=== PATIENT | female | born 1930 | race Caucasian/White ===

== ENCOUNTER 2016-10-14 11:55 | Emergency (ER) | payer MEDICARE, BC ==
[2016-10-14] MEDS ORDERED: Sodium Chloride 0.9% 1,000 ML IV ONE ×2 (12:12→13:31)
--- NOTE | 2016-10-14 12:20 | EDM.PDOC ---
ED HPI GENERAL MEDICAL PROBLEM - General Stated Complaint: episode of unresponsive Time Seen by Provider: 10/14/16 12:00 Source of Information: Reports: Patient, EMS, Custodial Records History Limitations: Reports: Altered Mental Status - History of Present Illness INITIAL COMMENTS - FREE TEXT/NARRATIVE: Patient was getting [place] and was found unresponsive in her wheel chair. Poorly responsive, lethargic on the ambulance. On arrival is still decreased but answers questions, BP low. No pain except in the areas of her shoulder and hip where she normally has pain. No CP, SOB, No Abdominal pain. No reports of fever Onset: Today, Sudden Duration: Hour(s): (1) Location: Reports: Generalized (no pain) Severity: Moderate Improves with: Reports: None Worsens with: Reports: None Context: Reports: Other (as above) Associated Symptoms: Reports: No Other Symptoms - Related Data Allergies Allergy/AdvReac Type Severity Reaction Status Date / Time cortisone [Cortisone] Allergy Rash Verified 10/14/16 13:11 Home Meds: Home Meds Albuterol [Proair HFA] 2 puff INH Q4HR PRN 04/27/13 [History] Calcium Carbonate [Tums] 1,000 mg PO DAILY 04/27/13 [History] Bisacodyl [Dulcolax] 5 mg PO BEDTIME PRN 10/24/14 [History] Sennosides/Docusate Sodium [Senna-Docusate Sodium] 2 tab PO DAILY PRN 10/24/14 [ History] *Rup Analgesic Rub 1 applic TOP TID PRN 12/20/14 [History] Docusate Sodium [Colace] 100 mg PO BEDTIME 12/20/14 [History] guaiFENesin [Robitussin] 100 mg PO Q4H PRN #0 cup 12/21/14 [Rx] Acetaminophen [Tylenol Extra Strength] 1,000 mg PO 0800,1600,0000 #90 tablet [Rx] Polyethylene Glycol 3350 [MiraLAX] 17 gm PO BEDTIME #10 packet 02/23/16 [Rx] Arformoterol [Brovana] 2 ml INH BID 10/14/16 [History] Benzocaine [Anesthetic Oral Gel] 1 applic PO DAILY PRN 10/14/16 [History] Calcium Carbonate [Calcium] 1,250 mg PO DAILY 10/14/16 [History] Cholecalciferol (Vitamin D3) [Vitamin D3] 1 cap PO DAILY 10/14/16 [History] Dextromethorphan/guaiFENesin [Mucinex DM ER 600-30 MG] 1 tab PO BID PRN [History] Diclofenac Sodium [Diclofenac Sodium ER] 1 tab PO DAILY 10/14/16 [History] Hydrocodone/Acetaminophen [Hydrocodon-Acetaminophen 5-325] 1 tab PO Q6H PRN [History] Oxybutynin Chloride 1 tab PO DAILY 10/14/16 [History] Sodium Chloride 1 tab PO TID 10/14/16 [History] Past Medical History Other HEENT History: glasses Cardiovascular History: Reports: Blood Clots/VTE/DVT Psychiatric History: Reports: Depression - Past Surgical History Other Musculoskeletal Surgeries/Procedures:: back surgeries- herniated disks Social & Family History - Family History HEENT: Reports: None Cardiac: Reports: None Respiratory: Reports: None GI: Reports: None : Reports: None OBGYN: Reports: None Musculoskeletal: Reports: None Neurological: Reports: None Psychiatric: Reports: None Endocrine/Metabolic: Reports: None Hematologic: Reports: None Immunologic: Reports: None Dermatologic: Reports: None Oncologic: Reports: Other (See Below) - Tobacco Use Smoking Status *Q: Current Every Day Smoker Years of Tobacco use: 60 Packs/Tins Daily: 0.3 Used Tobacco, but Quit: No Month Tobacco Last Used: t Second Hand Smoke Exposure: No - Caffeine Use Caffeine Use: Reports: None - Alcohol Use Days Per Week of Alcohol Use: 0 Number of Drinks Per Day: 0 Total Drinks Per Week: 0 - Recreational Drug Use Recreational Drug Use: No ED ROS GENERAL - Review of Systems Review Of Systems: See Below Constitutional: Reports: Weakness. Denies: Fever, Chills HEENT: Reports: No Symptoms Respiratory: Reports: No Symptoms Cardiovascular: Reports: No Symptoms Endocrine: Reports: No Symptoms GI/Abdominal: Reports: No Symptoms : Reports: No Symptoms Musculoskeletal: Reports: No Symptoms Skin: Reports: No Symptoms Neurological: Reports: Syncope, Weakness Psychiatric: Reports: No Symptoms Hematologic/Lymphatic: Reports: No Symptoms Immunologic: Reports: No Symptoms - Physical Exam Exam: See Below Exam Limited By: Altered Mental Status General Appearance: Lethargic Eye Exam: Bilateral Eye: EOMI, PERRL, Other (pale conjunctiva) Ears: Normal External Exam Nose: Normal Inspection, Normal Mucosa, No Blood Throat/Mouth: Normal Inspection, Normal Voice, No Airway Compromise Head Exam: Atraumatic, Normocephalic Neck: Normal Inspection, Supple, Full Range of Motion Respiratory/Chest: No Respiratory Distress, Lungs Clear, Normal Breath Sounds, No Accessory Muscle Use Cardiovascular: Normal Peripheral Pulses, Regular Rate, Rhythm, No Edema GI/Abdominal: Soft, Non-Tender, No Organomegaly, No Distention Rectal (Female) Exam: Heme - Stool Back Exam: Normal Inspection Extremities: Normal Inspection, No Pedal Edema, Slow Capillary Refill Psychiatric: Other (lethargic) Skin Exam: Dry, Intact, No Rash, Cool Course - Vital Signs Last Recorded V/S: Last Vital Signs Temp 36.8 C 10/14/16 11:55 Pulse 73 10/14/16 11:55 Resp 17 10/14/16 11:55 BP 80/40 L 10/14/16 11:55 Pulse Ox 90 L 10/14/16 11:55 - Orders/Labs/Meds Orders: Active Orders 24 hr Category Date Time Status EKG Documentation Completion [RC] ASDIRECTED Care 10/14/16 13:11 Active Insert Aragon Catheter [Insert Urinary Catheter] [OM.PC] Care 10/14/16 12:15 Ordered Q24H Urinary Catheter Assessment [RC] ASDIRECTED Care 10/14/16 12:14 Active Chest 1V Frontal [CR] Stat Exams 10/14/16 12:40 Taken Sodium Chloride 0.9% @ 999 MLS/HR (1000ml) Med 10/14/16 13:31 Ordered Sodium Chloride 0.9% [Normal Saline] 1,000 ml IV .BOLUS EKG 12 Lead [EK] Routine Ther 10/14/16 13:11 Ordered Medication Orders Sodium Chloride (Normal Saline) 1,000 mls @ 999 mls/hr IV .BOLUS ONE Stop: 10/14/16 14:31 Labs: Laboratory Tests 10/14/16 10/14/16 10/14/16 Range/Units 12:12 12:12 12:12 WBC 8.7 (5.0-10.0) 10^3/uL RBC 3.55 L (3.80-5.50) 10^6/uL Hgb 10.8 L (12.0-16.0) g/dL Hct 32.5 L (37.0-47.0) % MCV 91.4 (82.0-92.0) fL MCH 30.4 (27.0-31.0) pg MCHC 33.2 (32.0-36.0) g/dL RDW 14.7 H (11.5-14.5) % Plt Count 310 H (150-300) 10^3/uL MPV 6.1 L (7.4-10.4) fL Neut % (Auto) 73.1 H (50.0-70.0) % Lymph % (Auto) 14.5 L (20.0-40.0) % Lyon % (Auto) 5.8 (2.0-8.0) % Eos % (Auto) 5.5 H (1.0-3.0) % Baso % (Auto) 1.1 H (0.0-1.0) % Neut # (Auto) 6.3 (2.5-7.0) 10^3/uL Lymph # (Auto) 1.3 (1.0-4.0) 10^3/uL Lyon # (Auto) 0.5 (0.1-0.8) 10^3/uL Eos # (Auto) 0.5 H (0.1-0.3) 10^3/uL Baso # (Auto) 0.1 (0.0-0.1) 10^3/uL PT 10.1 (8.9-11.4) SEC INR 1.0 (0.9-1.1) Sodium 135 L (136-145) mmol/L Potassium 4.1 (3.3-5.3) mmol/L Chloride 99 (98-115) mmol/L Carbon Dioxide 29.8 (21.0-32.0) mmol/L BUN 11 (6-25) mg/dL Creatinine 0.65 (0.51-1.17) mg/dL Est Cr Clr Drug Dosing TNP Estimated GFR (MDRD) > 60 mL/min Glucose 105 (70-110) mg/dL Calcium 8.2 L (8.7-10.3) mg/dL Total Bilirubin 0.3 (0.2-1.0) mg/dL AST 18 (15-37) U/L ALT 15 (12-78) U/L Alkaline Phosphatase 50 (46-116) IU/L Troponin I < 0.04 (0.00-0.070) ng/mL Total Protein 5.7 L (6.4-8.2) g/dL Albumin 2.93 L (3.00-4.80) g/dL Specimen Type Urine Color (YELLOW) Urine Appearance (CLEAR) Urine pH (5.0-9.0) Ur Specific Arabi (1.005-1.030) Urine Protein (NEGATIVE) mg/dL Urine Glucose (UA) (NEGATIVE) mg/dL Urine Ketones (NEGATIVE) mg/dL Urine Occult Blood (NEGATIVE) Urine Nitrite (NEGATIVE) Urine Bilirubin (NEGATIVE) Urine Urobilinogen (0.2-1.0) E.U./dL Ur Leukocyte Esterase (NEGATIVE) Urine RBC /HPF Urine WBC /HPF Ur Epithelial Cells /LPF Urine Bacteria (NONE TO FEW) /HPF 10/14/16 Range/Units 12:35 WBC (5.0-10.0) 10^3/uL RBC (3.80-5.50) 10^6/uL Hgb (12.0-16.0) g/dL Hct (37.0-47.0) % MCV (82.0-92.0) fL MCH (27.0-31.0) pg MCHC (32.0-36.0) g/dL RDW (11.5-14.5) % Plt Count (150-300) 10^3/uL MPV (7.4-10.4) fL Neut % (Auto) (50.0-70.0) % Lymph % (Auto) (20.0-40.0) % Lyon % (Auto) (2.0-8.0) % Eos % (Auto) (1.0-3.0) % Baso % (Auto) (0.0-1.0) % Neut # (Auto) (2.5-7.0) 10^3/uL Lymph # (Auto) (1.0-4.0) 10^3/uL Lyon # (Auto) (0.1-0.8) 10^3/uL Eos # (Auto) (0.1-0.3) 10^3/uL Baso # (Auto) (0.0-0.1) 10^3/uL PT (8.9-11.4) SEC INR (0.9-1.1) Sodium (136-145) mmol/L Potassium (3.3-5.3) mmol/L Chloride (98-115) mmol/L Carbon Dioxide (21.0-32.0) mmol/L BUN (6-25) mg/dL Creatinine (0.51-1.17) mg/dL Est Cr Clr Drug Dosing Estimated GFR (MDRD) mL/min Glucose (70-110) mg/dL Calcium (8.7-10.3) mg/dL Total Bilirubin (0.2-1.0) mg/dL AST (15-37) U/L ALT (12-78) U/L Alkaline Phosphatase (46-116) IU/L Troponin I (0.00-0.070) ng/mL Total Protein (6.4-8.2) g/dL Albumin (3.00-4.80) g/dL Specimen Type Urinfol Urine Color Yellow (YELLOW) Urine Appearance Cloudy H (CLEAR) Urine pH 5.5 (5.0-9.0) Ur Specific Arabi 1.020 (1.005-1.030) Urine Protein Trace H (NEGATIVE) mg/dL Urine Glucose (UA) Negative (NEGATIVE) mg/dL Urine Ketones Trace H (NEGATIVE) mg/dL Urine Occult Blood Negative (NEGATIVE) Urine Nitrite Positive H (NEGATIVE) Urine Bilirubin Negative (NEGATIVE) Urine Urobilinogen 0.2 (0.2-1.0) E.U./dL Ur Leukocyte Esterase Trace H (NEGATIVE) Urine RBC 0-5 /HPF Urine WBC 30-40 H /HPF Ur Epithelial Cells Few /LPF Urine Bacteria Many H (NONE TO FEW) /HPF Meds: Medications Generic Name Dose Route Start Last Admin Trade Name Freq PRN Reason Stop Dose Admin Sodium Chloride 1,000 mls @ 999 mls/hr 10/14/16 13:31 Normal Saline IV 10/14/16 14:31 .BOLUS ONE Discontinued Medications Generic Name Dose Route Start Last Admin Trade Name Freq PRN Reason Stop Dose Admin Sodium Chloride 1,000 mls @ 999 mls/hr 10/14/16 12:12 10/14/16 12:20 Normal Saline IV 07/13/17 13:12 999 mls/hr .BOLUS ONE Administration - Re-Assessments/Exams Free Text/Narrative Re-Assessment/Exam: 10/14/16 13:33 BP improved with initial bolus, still pale and weak. Departure - Departure Time of Disposition: 13:33 Disposition: Refer to Observation Condition: Fair Clinical Impression: Hypotension Qualifiers: Hypotension type: unspecified hypotension type Qualified Code(s): I95.9 - Hypotension, unspecified Syncope Qualifiers: Syncope type: unspecified Qualified Code(s): R55 - Syncope and collapse - Discharge Information - Problem List Review Problem List Initiated/Reviewed/Updated: Yes - My Orders Last 24 Hours: My Active Orders 10/14/16 12:14 Urinary Catheter Assessment [RC] ASDIRECTED 10/14/16 12:15 Insert Aragon Catheter [Insert Urinary Catheter] [OM.PC] Q24H 10/14/16 12:40 Chest 1V Frontal [CR] Stat 10/14/16 13:11 EKG Documentation Completion [RC] ASDIRECTED EKG 12 Lead [EK] Routine 10/14/16 13:31 Sodium Chloride 0.9% @ 999 MLS/HR (1000ml) Sodium Chloride 0.9% [Normal Saline] 1,000 ml IV .BOLUS - Assessment/Plan Last 24 Hours: My Active Orders 10/14/16 12:14 Urinary Catheter Assessment [RC] ASDIRECTED 10/14/16 12:15 Insert Aragon Catheter [Insert Urinary Catheter] [OM.PC] Q24H 10/14/16 12:40 Chest 1V Frontal [CR] Stat 10/14/16 13:11 EKG Documentation Completion [RC] ASDIRECTED EKG 12 Lead [EK] Routine 10/14/16 13:31 Sodium Chloride 0.9% @ 999 MLS/HR (1000ml) Sodium Chloride 0.9% [Normal Saline] 1,000 ml IV .BOLUS Assessment:: 1. Syncope and hypotension - Patient is dehydrated. Has a UTI which may be contributory. Need to r/o GI bleed, first hemoccult normal Plan: 1. Fluid resuscitation 2. Antibiotics to cover UTI 3. Serial Hemoccult 4. Discussed DDX with Bharathi Lord. He will monitor for other contributory factors
[2016-10-14 12:47] LABS: CHLORIDE,CL 99 mmol/L (98-115); SODIUM,NA 135 mmol/L (136-145)
[2016-10-14] MEDS ORDERED: Albuterol HFA 18 Gm Inhaler INH PRN (13:51)
[2016-10-14] MEDS ORDERED: Acetaminophen/HYDROcodone 325-5 MG Tab PO PRN (13:51)
[2016-10-14] MEDS ORDERED: Sodium Chloride 0.9% 1,000 ML IV SCH (14:00)
[2016-10-14] MEDS ORDERED: Sodium Chloride 1 GM Tab PO SCH (14:00)
[2016-10-14] MEDS ORDERED: Levofloxacin/Dextrose 5%-Water 500 MG in Premix Bag 1 BAG IV SCH (14:00)
[2016-10-14] MEDS ORDERED: Lidocaine 2% 100 MG/5 ML Syringe IVPUSH PRN (14:51)
[2016-10-14] MEDS ORDERED: Atropine 0.1 MG/ML 10 ML Syringe IVPUSH PRN (14:51)
[2016-10-14] MEDS ORDERED: EPINEPHrine 1:10,000 1 MG/10 ML Syringe IVPUSH PRN (14:51)
[2016-10-14] MEDS ORDERED: Nitroglycerin 0.4 MG Tab.SL SL PRN (14:51)
[2016-10-14] MEDS ORDERED: Acetaminophen 500 MG Tab PO SCH (16:00)
[2016-10-14 17:18] VITALS: BP 94/34
[2016-10-14] MEDS ORDERED: Arformoterol 15 MCG/2 ML Neb Soln INH SCH (21:00)
[2016-10-15] MEDS ORDERED: Diclofenac Sodium 50 MG Tab.EC PO SCH (08:00)
[2016-10-15] MEDS ORDERED: Oxybutynin 5 MG Tab PO SCH (09:00)
[2016-10-15] MEDS ORDERED: Calcium Carbonate 500 MG Tab.Chew PO SCH (09:00)
== END 2016-10-14 16:20 ==
LOC: KA.ED 11:55
DX: I95.9 Hypotension, unspecified (principal); F17.210 Nicotine dependence, cigarettes, uncomplicated; Z98.890 Other specified postprocedural states; Z86.718 Personal history of other venous thrombosis and embolism; Z79.899 Other long term (current) drug therapy; Z88.8 Allergy status to other drugs, medicaments and biological substances
CPT/HCPCS: 36415; 36430; 51702; 71010; 80053; 81001; 82272; 84484; 85014; 85018; 85025; 85610; 86850; 86900; 86901; 86920; 86922; 93005; 96361; 96374; 99285; A9270; J1956; J7030; P9016

== ENCOUNTER 2016-12-17 10:11 | Emergency (ER) | payer MEDICARE, BC ==
[2016-12-17 10:23] VITALS: BP 146/62
--- NOTE | 2016-12-17 10:25 | EDM.PDOC ---
ED HPI GENERAL MEDICAL PROBLEM - General Chief Complaint: Upper Extremity Injury/Pain Stated Complaint: FALL/PAIN IN SHOULDER AND BACK Time Seen by Provider: 12/17/16 10:19 Source of Information: Reports: Patient, Other (EMPLOYEES) History Limitations: Reports: No Limitations - History of Present Illness INITIAL COMMENTS - FREE TEXT/NARRATIVE: PT WAS CLIMBING STAIRS TO ENTER RADIOLOGY TRUCK AND ACCIDENTALLY FELL. ASSISTED FALL WITH TECH GRADUALLY LOWERING HER TO GROUND AND NOT FROM STANDING POSITION ALONE. NOW WITH PAIN IN LEFT SHOULDER. DENY LOC, HEAD INJURY, VAZQUEZ, VISION CHANGES , OR ANY OTHER INJURY Onset: Today Onset Date: 12/17/16 Onset Time: 10:00 Duration: Minutes: Location: Reports: Upper Extremity, Left Quality: Reports: Ache Severity: Mild Improves with: Reports: None Worsens with: Reports: Movement Context: Reports: Trauma Associated Symptoms: Reports: No Other Symptoms - Related Data Allergies Allergy/AdvReac Type Severity Reaction Status Date / Time cortisone [Cortisone] Allergy Rash Verified 10/14/16 13:11 Home Meds: Home Meds Albuterol [Proair HFA] 2 puff INH Q4HR PRN 04/27/13 [History] Calcium Carbonate [Tums] 500 mg PO TID 04/27/13 [History] Bisacodyl [Dulcolax] 5 mg PO BEDTIME PRN 10/24/14 [History] Sennosides/Docusate Sodium [Senna-Docusate Sodium] 2 tab PO DAILY 10/24/14 [ History] *Rup Analgesic Rub 1 applic TOP BID 12/20/14 [History] Docusate Sodium [Colace] 100 mg PO BEDTIME 12/20/14 [History] guaiFENesin [Robitussin] 100 mg PO Q4H PRN #0 cup 12/21/14 [Rx] Acetaminophen [Tylenol Extra Strength] 1,000 mg PO 0800,1600,0000 #90 tablet [Rx] Polyethylene Glycol 3350 [MiraLAX] 17 gm PO BEDTIME #10 packet 02/23/16 [Rx] Arformoterol [Brovana] 2 ml INH BID 10/14/16 [History] Benzocaine [Anesthetic Oral Gel] 1 applic PO DAILY PRN 10/14/16 [History] Calcium Carbonate [Calcium] 1,250 mg PO DAILY 10/14/16 [History] Cholecalciferol (Vitamin D3) [Vitamin D3] 1 cap PO DAILY 10/14/16 [History] Dextromethorphan/guaiFENesin [Mucinex DM ER 600-30 MG] 1 tab PO BID PRN [History] Diclofenac Sodium [Diclofenac Sodium ER] 1 tab PO DAILY 10/14/16 [History] Hydrocodone/Acetaminophen [Hydrocodon-Acetaminophen 5-325] 1 tab PO Q6H PRN [History] Oxybutynin Chloride 1 tab PO DAILY 10/14/16 [History] Sodium Chloride 1 tab PO TID 10/14/16 [History] Past Medical History HEENT History: Reports: Impaired Vision Other HEENT History: glasses Cardiovascular History: Reports: Blood Clots/VTE/DVT Respiratory History: Reports: COPD Gastrointestinal History: Reports: Fecal Incontinence Musculoskeletal History: Reports: Back Pain, Chronic, Fracture, Osteoarthritis, Other (See Below) Other Musculoskeletal History: displaced upper left humerus with surgical repair in February 2016 Psychiatric History: Reports: Depression - Past Surgical History Other Musculoskeletal Surgeries/Procedures:: back surgeries- herniated disks Social & Family History - Family History HEENT: Reports: None Cardiac: Reports: None Respiratory: Reports: None GI: Reports: None : Reports: None OBGYN: Reports: None Musculoskeletal: Reports: None Neurological: Reports: None Psychiatric: Reports: None Endocrine/Metabolic: Reports: None Hematologic: Reports: None Immunologic: Reports: None Dermatologic: Reports: None Oncologic: Reports: Other (See Below) - Tobacco Use Smoking Status *Q: Current Every Day Smoker Years of Tobacco use: 60 Packs/Tins Daily: 0.3 Used Tobacco, but Quit: No Month Tobacco Last Used: t Second Hand Smoke Exposure: No - Caffeine Use Caffeine Use: Reports: None - Alcohol Use Days Per Week of Alcohol Use: 0 Number of Drinks Per Day: 0 Total Drinks Per Week: 0 - Recreational Drug Use Recreational Drug Use: No Review of Systems - Review of Systems Review Of Systems: ROS reveals no pertinent complaints other than HPI. Constitutional: Reports: No Symptoms Eyes: Reports: No Symptoms Ears: Reports: No Symptoms Nose: Reports: No Symptoms Mouth/Throat: Reports: No Symptoms Respiratory: Reports: No Symptoms Cardiovascular: Reports: No Symptoms GI/Abdominal: Reports: No Symptoms Genitourinary: Reports: No Symptoms Musculoskeletal: Reports: Arm Pain (LEFT UPPER ARM), Joint Pain (LEFT SHOULDER) Skin: Reports: No Symptoms Neurological: Reports: No Symptoms Psychiatric: Reports: No Symptoms ED EXAM, GENERAL - Physical Exam Exam: See Below Exam Limited By: No Limitations General Appearance: Alert, WD/WN, No Apparent Distress Eye Exam: Bilateral Eye: Normal Inspection Throat/Mouth: Normal Inspection, Normal Oropharynx, No Airway Compromise Head: Atraumatic, Normocephalic Neck: Normal Inspection, Supple, Non-Tender, Full Range of Motion Respiratory/Chest: No Respiratory Distress, Lungs Clear GI/Abdominal: Normal Bowel Sounds, Soft, Non-Tender Extremities: Arm Pain (LEFT PROX HUMERUS / LEFT LATERAL SHOULDER / NO EDEMA, ECCHYMOSIS, OR DEFORMITY NOTED) Neurological: Alert, Oriented, Normal Cognition Psychiatric: Normal Affect, Normal Mood Skin Exam: Warm, Dry, Intact, Normal Color, No Rash Course - Orders/Labs/Meds Orders: Active Orders 24 hr Category Date Time Status Humerus Lt [CR] Stat Exams 12/17/16 10:19 Ordered Shoulder Comp Lt [CR] Stat Exams 12/17/16 10:19 Ordered - Radiology Interpretation Free Text/Narrative:: shoulder xray negative for acute process - Re-Assessments/Exams Free Text/Narrative Re-Assessment/Exam: 12/17/16 11:07 PT AFEBRILE, NONTOXIC APPEARING, VSS, DISCOMFORT RELIEVED. Departure - Departure Time of Disposition: 11:08 Disposition: Home, Self-Care 01 Condition: Good Clinical Impression: Contusion, shoulder /upper arm Fall Qualifiers: Encounter type: initial encounter Qualified Code(s): W19.XXXA - Unspecified fall, initial encounter - Discharge Information Instructions: Osteoarthritis, Shoulder Pain, [id number] Referrals: Brooklynn Juarez MD [Primary Care Provider] - Forms: ED Department Discharge Additional Instructions: FOLLOW UP WITH PCP IN 2-3 DAYS. RETURN TO ER SOONER IF SYMPTOMS CONTINUE - My Orders Last 24 Hours: My Active Orders 12/17/16 10:19 Humerus Lt [CR] Stat Shoulder Comp Lt [CR] Stat - Assessment/Plan Last 24 Hours: My Active Orders 12/17/16 10:19 Humerus Lt [CR] Stat Shoulder Comp Lt [CR] Stat Assessment:: FALL / NO INJURY Plan: F/U WITH PCP
== END 2016-12-17 11:45 | disposition home or self-care (01) ==
LOC: KA.ED 10:11
DX: S40.012A Contusion of left shoulder, initial encounter (principal); J44.9 Chronic obstructive pulmonary disease, unspecified; M19.90 Unspecified osteoarthritis, unspecified site; F32.9 Major depressive disorder, single episode, unspecified; F17.210 Nicotine dependence, cigarettes, uncomplicated; Z88.8 Allergy status to other drugs, medicaments and biological substances; Z79.899 Other long term (current) drug therapy; W19.XXXA Unspecified fall, initial encounter
CPT/HCPCS: 73030-LT; 99284

== ENCOUNTER 2016-12-23 12:51 | Emergency (ER) | payer MEDICARE, BC ==
[2016-12-23 13:02] VITALS: BP 153/71
--- NOTE | 2016-12-23 13:36 | EDM.PDOC ---
ED HPI GENERAL MEDICAL PROBLEM - General Chief Complaint: Respiratory Problem Stated Complaint: I don"t feel well" Time Seen by Provider: 12/23/16 13:15 Source of Information: Reports: Patient History Limitations: Reports: No Limitations - History of Present Illness INITIAL COMMENTS - FREE TEXT/NARRATIVE: 86 yo WF presents to ER by EMS after being sent from [facility] with abnormal chest xray and abdominal distention. Pt reports she hasn't been feeling well recently and has had episodes of nausea/vomiting and diarrhea. Pt reports she was feeling short of breath prompting evaluation at clinic today. Pt denies and fever/chills. Onset: Unknown/Unsure Duration: Day(s): (2) Location: Reports: Chest, Abdomen Quality: Reports: Ache Severity: Mild Improves with: Reports: None Worsens with: Reports: Breathing Associated Symptoms: Reports: Cough, Loss of Appetite, Malaise, Nausea/Vomiting , Shortness of Breath, Weakness. Denies: Chest Pain, Fever/Chills, Syncope Treatments RN TESTING: Reports: Oxygen Right Chest Pain Score (Numeric/FACES): 7 - Related Data Allergies Allergy/AdvReac Type Severity Reaction Status Date / Time cortisone [Cortisone] Allergy Rash Verified 12/23/16 13:00 Home Meds: Home Meds Calcium Carbonate [Tums] 500 mg PO 1200,1600 04/27/13 [History] Bisacodyl [Dulcolax] 5 mg PO BEDTIME PRN 10/24/14 [History] Sennosides/Docusate Sodium [Senna-Docusate Sodium] 2 tab PO DAILY 10/24/14 [ History] Docusate Sodium [Colace] 100 mg PO BEDTIME 12/20/14 [History] guaiFENesin [Robitussin] 100 mg PO Q4H PRN #0 cup 12/21/14 [Rx] Arformoterol [Brovana] 2 ml INH BID 10/14/16 [History] Cholecalciferol (Vitamin D3) [Vitamin D3] 1 cap PO DAILY 10/14/16 [History] Dextromethorphan/guaiFENesin [Mucinex DM ER 600-30 MG] 1 tab PO BID PRN [History] Oxybutynin Chloride 1 tab PO DAILY 10/14/16 [History] Omeprazole 20 mg PO DAILY 12/17/16 [History] Potassium And Sodium Phosphate 1 packet PO TIDMEALS 12/17/16 [History] Acetaminophen 650 mg PO Q4H PRN 12/23/16 [History] Acetaminophen [Tylenol Extra Strength] 500 mg PO 0600,1300,2000 12/23/16 [ History] Albuterol [Ventolin HFA] 2 puff INH Q4H 12/23/16 [History] Ferrous Sulfate [Feosol] 325 mg PO 1200,1800 12/23/16 [History] Ondansetron [Zofran Odt] 8 mg PO Q4H PRN 12/23/16 [History] Polyethylene Glycol 3350 [MiraLAX] 17 gm PO 1700 12/23/16 [History] Past Medical History HEENT History: Reports: Impaired Vision Other HEENT History: glasses Cardiovascular History: Reports: Blood Clots/VTE/DVT Respiratory History: Reports: COPD Gastrointestinal History: Reports: Fecal Incontinence Genitourinary History: Reports: UTI, Recurrent Musculoskeletal History: Reports: Back Pain, Chronic, Fracture, Osteoarthritis, Other (See Below) Other Musculoskeletal History: displaced upper left humerus with surgical repair in February 2016 Psychiatric History: Reports: Depression Endocrine/Metabolic History: Reports: Vitamin D Deficiency - Infectious Disease History Infectious Disease History: Reports: Chicken Pox, Measles, Mumps - Past Surgical History Other Musculoskeletal Surgeries/Procedures:: back surgeries- herniated disks Social & Family History - Family History HEENT: Reports: None Cardiac: Reports: None Respiratory: Reports: None GI: Reports: None : Reports: None OBGYN: Reports: None Musculoskeletal: Reports: None Neurological: Reports: None Psychiatric: Reports: None Endocrine/Metabolic: Reports: None Hematologic: Reports: None Immunologic: Reports: None Dermatologic: Reports: None Oncologic: Reports: Other (See Below) - Tobacco Use Smoking Status *Q: Former Smoker Years of Tobacco use: 0 Packs/Tins Daily: 1 Used Tobacco, but Quit: Yes Month Tobacco Last Used: february Second Hand Smoke Exposure: No - Caffeine Use Caffeine Use: Reports: None - Alcohol Use Days Per Week of Alcohol Use: 0 Number of Drinks Per Day: 0 Total Drinks Per Week: 0 - Recreational Drug Use Recreational Drug Use: No ED ROS GENERAL - Review of Systems Review Of Systems: See Below Constitutional: Reports: Decreased Appetite HEENT: Reports: No Symptoms Respiratory: Reports: Shortness of Breath, Cough. Denies: Hemoptysis Cardiovascular: Reports: No Symptoms Endocrine: Reports: No Symptoms GI/Abdominal: Reports: Diarrhea, Distension, Nausea, Vomiting : Reports: No Symptoms Musculoskeletal: Reports: No Symptoms Skin: Reports: No Symptoms Neurological: Reports: No Symptoms Psychiatric: Reports: No Symptoms Hematologic/Lymphatic: Reports: No Symptoms Immunologic: Reports: No Symptoms ED EXAM, GENERAL - Physical Exam Exam: See Below Exam Limited By: No Limitations General Appearance: Alert, WD/WN, No Apparent Distress Throat/Mouth: Normal Inspection, Normal Lips, Normal Teeth, Normal Gums, Normal Oropharynx, Normal Voice, No Airway Compromise Head: Atraumatic, Normocephalic Neck: Normal Inspection, Supple, Non-Tender, Full Range of Motion Respiratory/Chest: No Respiratory Distress, No Accessory Muscle Use, Chest Non- Tender, Decreased Breath Sounds Cardiovascular: Normal Peripheral Pulses, Regular Rate, Rhythm, No Edema, No Gallop, No JVD, No Murmur, No Rub GI/Abdominal: Normal Bowel Sounds, Non-Tender, No Organomegaly, No Abnormal Bruit, Distended. No: Guarding, Rigid, Rebound, Tender, Abnormal Bowel Sounds Back Exam: Normal Inspection, Full Range of Motion, NT Extremities: Normal Inspection, Normal Range of Motion, Non-Tender, Normal Capillary Refill, No Pedal Edema Neurological: Alert, Oriented, CN II-XII Intact, Normal Cognition, Normal Gait, Normal Reflexes, No Motor/Sensory Deficits Psychiatric: Normal Affect, Normal Mood Skin Exam: Warm, Dry, Intact, Normal Color, No Rash Lymphatic: No Adenopathy EKG INTERPRETATION EKG Date: 12/23/16 Time: 13:13 Rhythm: NSR Rate (Beats/Min): 62 [place]: Normal P-Wave: Present QRS: Normal ST-T: Normal QT: Normal Comparison: NA - No Prior EKG Course - Vital Signs Last Recorded V/S: Last Vital Signs Temp 37.2 C 12/23/16 12:53 Pulse 67 12/23/16 12:53 Resp 20 12/23/16 12:53 BP 153/71 H 12/23/16 12:53 Pulse Ox 85 L 12/23/16 12:53 - Orders/Labs/Meds Orders: Active Orders 24 hr Category Date Time Status EKG Documentation Completion [RC] ASDIRECTED Care 12/23/16 13:04 Active Abdomen Pelvis w Cont [CT] Stat Exams 12/23/16 13:23 Ordered B-TYPE NATRIURETIC PEPTIDE,BNP [CHEM] Stat Lab 12/23/16 13:23 Ordered CK W CKMB [CHEM] Stat Lab 12/23/16 13:23 Ordered COMPREHENSIVE METABOLIC PN,CMP [CHEM] Stat Lab 12/23/16 13:23 Ordered LIPASE [CHEM] Stat Lab 12/23/16 13:23 Ordered TROPONIN I [CHEM] Stat Lab 12/23/16 13:23 Ordered EKG 12 Lead [EK] Routine Ther 12/23/16 13:04 Ordered Labs: Laboratory Tests 12/23/16 12/23/16 Range/Units 13:18 13:18 WBC 5.8 (5.0-10.0) 10^3/uL RBC 4.35 (3.80-5.50) 10^6/uL Hgb 11.6 L (12.0-16.0) g/dL Hct 39.0 (37.0-47.0) % MCV 89.6 (82.0-92.0) fL MCH 26.7 L (27.0-31.0) pg MCHC 29.8 L (32.0-36.0) g/dL RDW 18.5 H (11.5-14.5) % Plt Count 287 (150-300) 10^3/uL MPV 6.7 L (7.4-10.4) fL Neut % (Auto) 79.4 H (50.0-70.0) % Lymph % (Auto) 13.3 L (20.0-40.0) % [place] % (Auto) 5.8 (2.0-8.0) % Eos % (Auto) 0.6 L (1.0-3.0) % Baso % (Auto) 0.9 (0.0-1.0) % Neut # (Auto) 4.6 (2.5-7.0) 10^3/uL Lymph # (Auto) 0.8 L (1.0-4.0) 10^3/uL [place] # (Auto) 0.3 (0.1-0.8) 10^3/uL Eos # (Auto) 0.0 L (0.1-0.3) 10^3/uL Baso # (Auto) 0.1 (0.0-0.1) 10^3/uL Sodium 130 L (136-145) mmol/L Potassium 4.3 (3.3-5.3) mmol/L Chloride 93 L (98-115) mmol/L Carbon Dioxide 29.0 (21.0-32.0) mmol/L BUN 8 (6-25) mg/dL Creatinine 0.59 (0.51-1.17) mg/dL Est Cr Clr Drug Dosing 74.18 mL/min Estimated GFR (MDRD) > 60 mL/min Glucose 94 (70-110) mg/dL Calcium 8.1 L (8.7-10.3) mg/dL Total Bilirubin 0.2 (0.2-1.0) mg/dL AST 37 (15-37) U/L ALT 25 (12-78) U/L Alkaline Phosphatase 64 (46-116) IU/L Creatine Kinase 125 (26-276) U/L CK-MB (CK-2) 2.80 (0.00-4.30) ng/mL B-Natriuretic Peptide 38 (0-100) pg/mL Total Protein 7.1 (6.4-8.2) g/dL Albumin 3.75 (3.00-4.80) g/dL Lipase 87 (73-393) U/L - Radiology Interpretation Free Text/Narrative:: CXR- interstitial fibrosis; right lower lobe infiltrate ABd series- dilated loops of bowel without air/fluid levels CT abd/Pelvis- Distal colonic obstruction; possible volvulos Departure - Departure Time of Disposition: 15:17 Disposition: DC/Tfer to Acute Hospital 02 Condition: Serious Clinical Impression: Hypoxia Bowel obstruction Qualifiers: Intestinal obstruction type: unspecified Qualified Code(s): K56.60 - Unspecified intestinal obstruction Pneumonia Qualifiers: Pneumonia type: due to unspecified organism Laterality: right Lung location: lower lobe of lung Qualified Code(s): J18.1 - Lobar pneumonia, unspecified organism - Discharge Information Referrals: Brooklynn Juarez MD [Primary Care Provider] - Forms: ED Department Discharge, Interfacility Transfer RENEE - My Orders Last 24 Hours: My Active Orders 12/23/16 13:04 EKG Documentation Completion [RC] ASDIRECTED EKG 12 Lead [EK] Routine 12/23/16 13:23 Abdomen Pelvis w Cont [CT] Stat B-TYPE NATRIURETIC PEPTIDE,BNP [CHEM] Stat CK W CKMB [CHEM] Stat COMPREHENSIVE METABOLIC PN,CMP [CHEM] Stat LIPASE [CHEM] Stat TROPONIN I [CHEM] Stat - Assessment/Plan Last 24 Hours: My Active Orders 12/23/16 13:04 EKG Documentation Completion [RC] ASDIRECTED EKG 12 Lead [EK] Routine 12/23/16 13:23 Abdomen Pelvis w Cont [CT] Stat B-TYPE NATRIURETIC PEPTIDE,BNP [CHEM] Stat CK W CKMB [CHEM] Stat COMPREHENSIVE METABOLIC PN,CMP [CHEM] Stat LIPASE [CHEM] Stat TROPONIN I [CHEM] Stat Assessment:: 1. Distal Colonic obstruction 2. right lower lobe infiltrate 3. pulmonary fibrosis 4. hypoxia 5. hyponatremia Plan: 1. transfer for surgical evaluation- [facility] 2. hypoxia- oxygen at 2L [place] 3. RLL pneumonia- Levaquin 500mg IV 4. hyponatremia- NS @ 125cc/hr 5. supportive care
[2016-12-23 14:00] LABS: CHLORIDE,CL 93 mmol/L (98-115); SODIUM,NA 130 mmol/L (136-145)
[2016-12-23] MEDS ORDERED: Sodium Chloride 0.9% 1,000 ML IV SCH (15:15)
[2016-12-23] MEDS ORDERED: Levofloxacin/Dextrose 5%-Water 500 MG in Premix Bag 1 BAG IV ONE (15:15)
== END 2016-12-23 16:40 ==
LOC: KA.ED 12:51
DX: J18.9 Pneumonia, unspecified organism (principal); R09.02 Hypoxemia; K56.60 Unspecified intestinal obstruction; J44.9 Chronic obstructive pulmonary disease, unspecified; Z88.8 Allergy status to other drugs, medicaments and biological substances; R06.02 Shortness of breath
CPT/HCPCS: 36415; 74177; 80053; 82550; 82553; 83690; 83880; 84484; 85025; 87040; 93005; 96365; 99285; J1956; J7030

== ENCOUNTER 2017-04-10 13:49 | Emergency (ER) | payer MEDICARE, BC ==
[2017-04-10 15:38] LABS: CHLORIDE,CL 95 mmol/L (98-115); SODIUM,NA 131 mmol/L (136-145)
[2017-04-10] MEDS ORDERED: Acetaminophen 325 MG Tab PO ONE (16:51)
[2017-04-10] MEDS ORDERED: Acetaminophen 325 MG Tab ONE (16:53)
[2017-04-10] MEDS ORDERED: Sulfamethoxazole/Trimethoprim 800-160 MG Tab ONE (16:54)
--- NOTE | 2017-04-10 20:48 | EDM.PDOC ---
ED HPI GENERAL MEDICAL PROBLEM - General Chief Complaint: Fever Stated Complaint: COUGH, NOT FEELING WELL Time Seen by Provider: 04/10/17 14:20 Source of Information: Reports: Patient, Residential Records History Limitations: Reports: Altered Mental Status (agitation), Other (poor historian) - History of Present Illness INITIAL COMMENTS - FREE TEXT/NARRATIVE: 86-year-old female is brought over by senior living transportation for evaluation of patient having agitation, mild confusion, irritability, fever and complaints of knee and hip pain Onset: Today Onset Date: 04/10/17 Location: Reports: Lower Extremity, Right (right knee and hip), Generalized Severity: Moderate (agitation) Improves with: Reports: None Worsens with: Reports: None Associated Symptoms: Reports: Confusion, Fever/Chills - Related Data Allergies Allergy/AdvReac Type Severity Reaction Status Date / Time cortisone [Cortisone] Allergy Rash Verified 12/23/16 13:00 Home Meds: Home Meds Calcium Carbonate [Tums] 500 mg PO 1200,1800 04/27/13 [History] Bisacodyl [Dulcolax] 5 mg PO BEDTIME PRN 10/24/14 [History] Sennosides/Docusate Sodium [Senna-Docusate Sodium] 2 tab PO DAILY 10/24/14 [ History] Docusate Sodium [Colace] 100 mg PO 199912/20/14 [History] guaiFENesin [Robitussin] 100 mg PO Q4H PRN #0 cup 12/21/14 [Rx] Arformoterol [Brovana] 2 ml INH BID 10/14/16 [History] Cholecalciferol (Vitamin D3) [Vitamin D3] 1,000 units PO DAILY 10/14/16 [History ] Dextromethorphan/guaiFENesin [Mucinex DM ER 600-30 MG] 1 tab PO BID PRN [History] Oxybutynin Chloride 1 tab PO DAILY 10/14/16 [History] Omeprazole 20 mg PO 0600 12/17/16 [History] Potassium And Sodium Phosphate 1 packet PO TIDMEALS 12/17/16 [History] Acetaminophen 650 mg PO Q4H PRN 12/23/16 [History] Acetaminophen [Tylenol Extra Strength] 500 mg PO 0600,1300,199912/23/16 [ History] Albuterol [Ventolin HFA] 2 puff INH Q4H 12/23/16 [History] Ferrous Sulfate [Feosol] 325 mg PO 1200,1800 12/23/16 [History] Ondansetron [Zofran Odt] 8 mg PO Q4H PRN 12/23/16 [History] Polyethylene Glycol 3350 [MiraLAX] 17 gm PO 1700 12/23/16 [History] Past Medical History HEENT History: Reports: Impaired Vision Other HEENT History: glasses Cardiovascular History: Reports: Blood Clots/VTE/DVT Respiratory History: Reports: COPD Gastrointestinal History: Reports: Fecal Incontinence Genitourinary History: Reports: UTI, Recurrent PROCESS ASSISTANT History: Reports: None Musculoskeletal History: Reports: Back Pain, Chronic, Fracture, Osteoarthritis, Other (See Below) Other Musculoskeletal History: displaced upper left humerus with surgical repair in February 2016 Neurological History: Reports: None Psychiatric History: Reports: Depression Endocrine/Metabolic History: Reports: Vitamin D Deficiency Hematologic History: Reports: None Dermatologic History: Reports: None - Infectious Disease History Infectious Disease History: Reports: Chicken Pox, Measles, Mumps - Past Surgical History Other Musculoskeletal Surgeries/Procedures:: back surgeries- herniated disks Social & Family History - Family History HEENT: Reports: None Cardiac: Reports: None Respiratory: Reports: None GI: Reports: None : Reports: None OBGYN: Reports: None Musculoskeletal: Reports: None Neurological: Reports: None Psychiatric: Reports: None Endocrine/Metabolic: Reports: None Hematologic: Reports: None Immunologic: Reports: None Dermatologic: Reports: None Oncologic: Reports: Other (See Below) - Tobacco Use Smoking Status *Q: Former Smoker Years of Tobacco use: 0 Packs/Tins Daily: 1 Used Tobacco, but Quit: Yes Month Tobacco Last Used: february Second Hand Smoke Exposure: No - Caffeine Use Caffeine Use: Reports: None - Alcohol Use Days Per Week of Alcohol Use: 0 Number of Drinks Per Day: 0 Total Drinks Per Week: 0 - Recreational Drug Use Recreational Drug Use: No ED ROS GENERAL - Review of Systems Review Of Systems: Unable To Obtain ED EXAM, GENERAL - Physical Exam Exam: See Below Exam Limited By: Altered Mental Status (agitated) General Appearance: Alert, WD/WN, Other Eye Exam: Bilateral Eye: EOMI, PERRL Ears: Normal TMs Nose: Normal Inspection Throat/Mouth: Normal Inspection, No Airway Compromise Head: Atraumatic, Normocephalic Neck: Normal Inspection. No: Lymphadenopathy (L), Lymphadenopathy (R) Respiratory/Chest: No Respiratory Distress, Lungs Clear, Normal Breath Sounds Cardiovascular: Regular Rate, Rhythm GI/Abdominal: Normal Bowel Sounds, Soft Back Exam: Normal Inspection. No: CVA Tenderness (L), CVA Tenderness (R) Extremities: Normal Inspection, Limited Range of Motion (patient has severe limitation with right hip internal rotation and causes pain no charting diastasis handed to) Neurological: Alert, Confused Psychiatric: Other (agitation) Skin Exam: Warm, Dry, Intact, Normal Color Lymphatic: No Adenopathy Course - Vital Signs Last Recorded V/S: Last Vital Signs Temp 101.4 F H 04/10/17 16:57 Pulse Resp BP Pulse Ox - Orders/Labs/Meds Orders: Active Orders 24 hr Category Date Time Status Hip Min 1V w Pelvis Rt [CR] Stat Exams 04/10/17 14:49 Ordered Knee 1V or 2V Rt [CR] Stat Exams 04/10/17 14:49 Ordered Sulfamethoxazole/Trimethoprim [Septra DS] Med 04/10/17 21:00 Active 1 tab PO BID Medication Orders Trimethoprim/Sulfamethoxazole (Septra Ds) 1 tab PO BID DAVID Last Admin: 04/10/17 16:58 Dose: 1 tab Labs: Laboratory Tests 04/10/17 04/10/17 04/10/17 Range/Units 15:08 15:08 16:10 WBC 6.0 (5.0-10.0) 10^3/uL RBC 4.35 (3.80-5.50) 10^6/uL Hgb 12.7 (12.0-16.0) g/dL Hct 40.4 (37.0-47.0) % MCV 93.1 H (82.0-92.0) fL MCH 29.3 (27.0-31.0) pg MCHC 31.4 L (32.0-36.0) g/dL RDW 15.4 H (11.5-14.5) % Plt Count 225 (150-300) 10^3/uL MPV 6.0 L (7.4-10.4) fL Neut % (Auto) 89.9 H (50.0-70.0) % Lymph % (Auto) 6.7 L (20.0-40.0) % [place] % (Auto) 2.1 (2.0-8.0) % Eos % (Auto) 0.9 L (1.0-3.0) % Baso % (Auto) 0.4 (0.0-1.0) % Neut # (Auto) 5.4 (2.5-7.0) 10^3/uL Lymph # (Auto) 0.4 L (1.0-4.0) 10^3/uL [place] # (Auto) 0.1 (0.1-0.8) 10^3/uL Eos # (Auto) 0.1 (0.1-0.3) 10^3/uL Baso # (Auto) 0.0 (0.0-0.1) 10^3/uL Sodium 131 L (136-145) mmol/L Potassium 4.0 (3.3-5.3) mmol/L Chloride 95 L (98-115) mmol/L Carbon Dioxide 29.2 (21.0-32.0) mmol/L BUN 11 (6-25) mg/dL Creatinine 0.64 (0.51-1.17) mg/dL Est Cr Clr Drug Dosing TNP Estimated GFR (MDRD) > 60 mL/min Glucose 99 (70-110) mg/dL Calcium 8.2 L (8.7-10.3) mg/dL Specimen Type [place] Urine Color Dark yellow H (YELLOW) Urine Appearance Cloudy H (CLEAR) Urine pH 7.5 (5.0-9.0) Ur Specific [place] 1.020 (1.005-1.030) Urine Protein Negative (NEGATIVE) mg/dL Urine Glucose (UA) Negative (NEGATIVE) mg/dL Urine Ketones Negative (NEGATIVE) mg/dL Urine Occult Blood Negative (NEGATIVE) Urine Nitrite Positive H (NEGATIVE) Urine Bilirubin Negative (NEGATIVE) Urine Urobilinogen 1.0 (0.2-1.0) E.U./dL Ur Leukocyte Esterase Trace H (NEGATIVE) Urine RBC 0-5 /HPF Urine WBC 30-40 H /HPF Ur Epithelial Cells Rare /LPF Amorphous Sediment Few (0/HPF) /HPF Urine Bacteria Many H (NONE TO FEW) /HPF Urine Mucus Rare H (NEGATIVE) /LPF Meds: Medications Generic Name Dose Route Start Last Admin Trade Name Jose PRN Reason Stop Dose Admin Trimethoprim/Sulfamethoxazole 1 tab 04/10/17 21:00 04/10/17 16:58 Septra Ds PO 1 tab BID DAVID Administration Discontinued Medications Generic Name Dose Route Start Last Admin Trade Name Jose PRN Reason Stop Dose Admin Acetaminophen 650 mg 04/10/17 16:51 04/10/17 16:57 Tylenol PO 04/10/17 16:52 650 mg NOW ONE Administration Acetaminophen Confirm 04/10/17 16:53 Tylenol Administered 04/10/17 16:54 Dose 650 mg .ROUTE .STK-MED ONE Trimethoprim/Sulfamethoxazole Confirm 04/10/17 16:54 Septra Ds Administered 04/10/17 16:55 Dose 1 tab .ROUTE .STK-MED ONE Departure - Departure Time of Disposition: 18:00 Disposition: [facility] Condition: Good Clinical Impression: Urinary tract infection Qualifiers: Urinary tract infection type: site unspecified Hematuria presence: without hematuria Qualified Code(s): N39.0 - Urinary tract infection, site not specified - Discharge Information Instructions: Hip Pain, Urinary Tract Infection, Adult Referrals: Brooklynn Juarez MD [Primary Care Provider] - Forms: ED Department Discharge Additional Instructions: 1. Urinary tract infection, patient was started on Bactrim DS twice a day for 5 days 2. Agitation due to urinary tract infection. 3. 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 5. Fever, Tylenol 650 mg every 4-6 hours as needed. 6. Push oral fluids on this patient. 7. Follow-up with her primary care next week - My Orders Last 24 Hours: My Active Orders 04/10/17 14:49 Hip Min 1V w Pelvis Rt [CR] Stat Knee 1V or 2V Rt [CR] Stat 04/10/17 21:00 Sulfamethoxazole/Trimethoprim [Septra DS] 1 tab PO BID - Assessment/Plan Last 24 Hours: My Active Orders 04/10/17 14:49 Hip Min 1V w Pelvis Rt [CR] Stat Knee 1V or 2V Rt [CR] Stat 04/10/17 21:00 Sulfamethoxazole/Trimethoprim [Septra DS] 1 tab PO BID Assessment:: 1. Urinary tract infection 2. End-stage osteoarthritis right hip 3. Right knee DJD Plan: 1. Urinary tract infection, patient was started on Bactrim DS twice a day for 5 days 2. Agitation due to urinary tract infection. 3. 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 5. Fever, Tylenol 650 mg every 4-6 hours as needed. 6. Push oral fluids on this patient. 7. Follow-up with her primary care next week
[2017-04-10] MEDS ORDERED: Sulfamethoxazole/Trimethoprim 800-160 MG Tab PO SCH (21:00)
[2017-04-10 22:25] VITALS: BP 164/93
== END 2017-04-10 18:00 ==
LOC: KA.ED 13:49
DX: N39.0 Urinary tract infection, site not specified (principal); J44.9 Chronic obstructive pulmonary disease, unspecified; Z87.891 Personal history of nicotine dependence; Z79.899 Other long term (current) drug therapy; Z88.8 Allergy status to other drugs, medicaments and biological substances
CPT/HCPCS: 36415; 73501; 73560; 80048; 81001; 85025; 87804; 99283; A9270

== ENCOUNTER 2017-04-20 14:39 | Observation (INO) | payer MEDICARE, BC ==
[2017-04-20] MEDS: Sodium Chloride 0.9% 1,000 ML IV SCH (15:16)
[2017-04-20] MEDS ORDERED: Acetaminophen 325 MG Tab PO PRN (18:38)
[2017-04-20] MEDS ORDERED: Polyethylene Glycol 3350 Powder 17 GM Packet PO SCH (19:00)
[2017-04-20] MEDS: Albuterol HFA 18 Gm Inhaler INH SCH ×2 (19:18→20:43)
[2017-04-20] MEDS: Omeprazole 20 MG Cap.CR PO SCH (19:20)
[2017-04-20] MEDS: Calcium Carbonate 500 MG Tab.Chew PO SCH (19:20)
[2017-04-20] MEDS: Arformoterol 15 MCG/2 ML Neb Soln INH SCH (20:34)
[2017-04-20] MEDS: Sodium Chloride 1 GM Tab PO SCH (20:40)
[2017-04-21] MEDS: Sodium Chloride 0.9% 1,000 ML IV SCH (01:15)
[2017-04-21] MEDS: Albuterol HFA 18 Gm Inhaler INH SCH ×4 (02:17→12:55)
[2017-04-21 06:30] VITALS: BP 149/78
[2017-04-21] MEDS: Omeprazole 20 MG Cap.CR PO SCH (07:47)
[2017-04-21 08:20] LABS: CHLORIDE,CL 90 mmol/L (98-115); SODIUM,NA 127 mmol/L (136-145)
[2017-04-21] MEDS: Sodium Chloride 1 GM Tab PO SCH (08:22)
[2017-04-21] MEDS: Arformoterol 15 MCG/2 ML Neb Soln INH SCH (08:41)
[2017-04-21] MEDS ORDERED: Cholecalciferol (Vitamin D3) 1,000 Unit Tab PO SCH (09:00)
[2017-04-21] MEDS ORDERED: Oxybutynin 5 MG Tab PO SCH (09:00)
[2017-04-21] MEDS: Calcium Carbonate 500 MG Tab.Chew PO SCH (12:25)
--- NOTE | 2017-04-22 09:29 | PCM.DCSUM1 ---
Discharge Summary - Hospital Course HPI Initial Comments: this 86-year-old female was admitted from an outlying clinic she is a resident of [address] [place] [address] she was admitted mainly for significant hyponatremia. She was brought in by the clinic complaining of fatigue does not feel good although she does have ongoing left shoulder pain radiating into her shoulder blades. She does have a history of hyponatremia however her last sodium level January 2017 it was 129. On admission it was 119. - Discharge Data Discharge Date: 04/21/17 Discharge Disposition: DC/Tfer to [facility] 03 Condition: Good - Patient Summary/Data Complications: no complications throughout her short hospital stay. Hospital Course: urine studies to determine exact etiology of her hyponatremia however her serum osmolarity on discharge was 257 possibly indicating SIADH--however doubtful since normal saline administration increased her serum sodium-- others were pending upon discharge. Patient refused to stay in the hospital. She was given IV fluids isotonic saline along with sodium tablets with added salt to her diet until her urinalysis returned. [facility] does not run of fraction of excreted NA laboratory assay. her sodium level was increasing upon discharge at 127. She had no signs of altered mental status and she felt significantly improved the morning of discharge. - Patient Instructions Activity: As Tolerated, Cough & Deep Breathe Driving: Do Not Drive Showering/Bathing: August Shower Notify Provider of: Nausea and/or Vomiting Other/Special Instructions: report any weakness, altered mental status or lethargy. repeat sodium level Tuesday. urine studies pending - Discharge Plan Prescriptions/Med Rec: Calcium Carbonate/Vitamin D3 [Calcium Carb 500 MG] 500 mg PO TIDMEALS #90 tab.chew Sodium Chloride 1 gm PO BID #60 tablet Home Medications: Home Meds Sennosides/Docusate Sodium [Senna-Docusate Sodium] 1 tab PO BID@0800,1800 [History] Arformoterol [Brovana] 15 mcg INH BID 10/14/16 [History] Cholecalciferol (Vitamin D3) [Vitamin D3] 1,000 units PO DAILY 10/14/16 [History ] Oxybutynin Chloride 5 mg PO DAILY 10/14/16 [History] Omeprazole 20 mg PO BIDAC 12/17/16 [History] Acetaminophen 650 mg PO Q6H PRN 12/23/16 [History] Albuterol [Ventolin HFA] 2 puff INH Q4H PRN 12/23/16 [History] Polyethylene Glycol 3350 [MiraLAX] 17 gm PO DAILY@1700 12/23/16 [History] Lactulose 15 ml PO DAILY@1200 04/20/17 [History] Potassium & Sodium Phosphates 1 pkt PO TID@0800,1200,1800 04/20/17 [History] Calcium Carbonate/Vitamin D3 [Calcium Carb 500 MG] 500 mg PO TIDMEALS #90 tab.chew 04/21/17 [Rx] Sodium Chloride 1 gm PO BID #60 tablet 04/21/17 [Rx] - Discharge Summary/Plan Comment DC Time >30 min.: Yes Discharge Summary/Plan Comment: Final Dx Hyponatremia, hypotonic, improved however doubtful if SIADH, urine studies pending upon discharge - General Info Functional Status: Reports: Pain Controlled, Urinating - Review of Systems General: Reports: No Symptoms Pulmonary: Reports: No Symptoms Cardiovascular: Reports: No Symptoms Gastrointestinal: Reports: No Symptoms Musculoskeletal: Reports: Shoulder Pain (chronic left shoulder pain) Neurological: Denies: Confusion, Numbness, Paresthesia, Seizure, Weakness Psychiatric: Denies: Confusion - Patient Data Vitals - Most Recent: Last Vital Signs Temp 98.0 F 04/21/17 06:29 Pulse 68 04/21/17 08:41 Resp 16 04/21/17 06:29 BP 149/78 H 04/21/17 06:29 Pulse Ox 88 L 04/21/17 09:29 Weight - Most Recent: 157 lb 3.2 oz Lab Results - Last 24 hrs: Laboratory Results - last 24 hr 04/20/17 Range/Units 19:39 Serum Osmolality 257 L (275-295) mosm/kg Med Orders - Current: Current Medications Discontinued Medications Acetaminophen (Tylenol) 650 mg PO Q4H PRN PRN Reason: Pain Albuterol (Ventolin Hfa) 0 gm INH Q4HRRT [facility] Last Admin: 04/21/17 12:55 Dose: Not Given Arformoterol Tartrate (Brovana) 15 mcg INH BIDRT [facility] Last Admin: 04/21/17 08:41 Dose: 15 mcg Calcium Carbonate/Glycine (Tums) 500 mg PO BID@1200,1800 [facility] Last Admin: 04/21/17 12:25 Dose: 500 mg Cholecalciferol (Vitamin D3) 1,000 units PO DAILY [facility] Last Admin: 04/21/17 08:23 Dose: 1,000 units Sodium Chloride (Normal Saline) 1,000 mls @ 100 mls/hr IV ASDIRECTED [facility] Last Admin: 04/21/17 01:15 Dose: 100 mls/hr Omeprazole (Omeprazole) 20 mg PO BIDAC [facility] Last Admin: 04/21/17 07:47 Dose: 20 mg Oxybutynin Chloride (Oxybutynin) 5 mg PO DAILY [facility] Last Admin: 04/21/17 08:22 Dose: 5 mg Polyethylene Glycol (Miralax) 17 gm PO DAILY@1700 [facility] Last Admin: 04/20/17 19:20 Dose: 17 gm Senna/Docusate Sodium (Senna Plus) 1 tab PO BID [facility] Last Admin: 04/21/17 08:23 Dose: 1 tab Sodium Chloride (Sodium Chloride) 1 gm PO BID [facility] Last Admin: 04/21/17 08:22 Dose: 1 gm - Exam Quality Assessment: Denies: Supplemental Oxygen General: Reports: Alert, Oriented, Cooperative, No Acute Distress Neck: Reports: Supple Lungs: Reports: Clear to Auscultation, Normal Respiratory Effort Cardiovascular: Reports: Regular Rate, Regular Rhythm *Q Meaningful Use (DIS) - VTE *Q VTE Criteria *Q: - Stroke *Q Stroke Criteria *Q: - AMI *Q AMI Criteria *Q:
== END 2017-04-21 14:10 ==
LOC: KA.MS 14:39
PROVIDERS: ADMIT Family Medicine; ATTEND Family Medicine
DX: E87.1 Hypo-osmolality and hyponatremia (principal); M25.512 Pain in left shoulder; J44.9 Chronic obstructive pulmonary disease, unspecified; R53.83 Other fatigue; R53.1 Weakness; H61.23 Impacted cerumen, bilateral; K21.9 Gastro-esophageal reflux disease without esophagitis; K59.00 Constipation, unspecified; M19.90 Unspecified osteoarthritis, unspecified site; D64.9 Anemia, unspecified; E78.00 Pure hypercholesterolemia, unspecified; E83.39 Other disorders of phosphorus metabolism; E87.6 Hypokalemia; I83.819 Varicose veins of unspecified lower extremity with pain; R62.7 Adult failure to thrive; Z87.891 Personal history of nicotine dependence; Z79.899 Other long term (current) drug therapy; Z88.8 Allergy status to other drugs, medicaments and biological substances; Z80.0 Family history of malignant neoplasm of digestive organs; Z80.1 Family history of malignant neoplasm of trachea, bronchus and lung; Z96.612 Presence of left artificial shoulder joint; Z96.642 Presence of left artificial hip joint; Z98.890 Other specified postprocedural states; Z99.3 Dependence on wheelchair
CPT/HCPCS: 36415; 80053; 81001; 83930; 83935; 84295; 84300; 87804; 94640; 96360; 96361; A9270; G0378; J7030

== ENCOUNTER 2017-05-02 15:02 | Observation (INO) | payer MEDICARE, BC ==
[2017-05-02] MEDS ORDERED: Sodium Chloride 0.9% 5 ML Syringe FLUSH PRN (15:13)
[2017-05-02] MEDS ORDERED: Albuterol HFA 18 Gm Inhaler INH PRN ×2 (15:57→18:34)
[2017-05-02] MEDS ORDERED: Acetaminophen 325 MG Tab PO PRN (15:57)
[2017-05-02 17:14] LABS: CHLORIDE,CL 96 mmol/L (98-115); SODIUM,NA 138 mmol/L (136-145)
[2017-05-02] MEDS ORDERED: Albuterol HFA 18 Gm Inhaler INH SCH (17:30)
[2017-05-02] MEDS: Polyethylene Glycol 3350 Powder 17 GM Packet PO SCH (17:55)
[2017-05-02] MEDS: Ciprofloxacin in D5W 400 MG in Premix Bag 1 BAG IV SCH ×2 (17:56)
[2017-05-02] MEDS: Omeprazole 20 MG Cap.CR PO SCH (17:56)
[2017-05-02] MEDS: Phosphorus #1 250 MG Tab PO SCH (17:56)
[2017-05-02] MEDS: Arformoterol 15 MCG/2 ML Neb Soln INH SCH (20:22)
[2017-05-02] MEDS: Sodium Chloride 1 GM Tab PO SCH (20:30)
[2017-05-03] MEDS: Ciprofloxacin in D5W 400 MG in Premix Bag 1 BAG IV SCH ×4 (05:56→17:40)
[2017-05-03] MEDS: Omeprazole 20 MG Cap.CR PO SCH ×2 (07:14→17:05)
[2017-05-03] MEDS: Arformoterol 15 MCG/2 ML Neb Soln INH SCH ×2 (08:27→20:47)
[2017-05-03] MEDS: Phosphorus #1 250 MG Tab PO SCH ×3 (08:43→17:48)
[2017-05-03] MEDS: Furosemide 20 MG Tab PO SCH (08:43)
[2017-05-03] MEDS: Sodium Chloride 1 GM Tab PO SCH ×2 (08:44→20:45)
[2017-05-03] MEDS: Oxybutynin 5 MG Tab PO SCH (08:44)
--- NOTE | 2017-05-03 11:32 | PN ---
05/03/2017 PATIENT NAME: PADMINI JORDAN CHIEF COMPLAINT: Overall feels much better, less weak, is more alert and lucid this morning. No fevers. Vital signs have been stable. BRIEF HISTORY: This patient was recently discharged about 10 days ago from the hospital due to hyponatremia. She is a resident of [facility]. I had seen her at [facility]. They had brought her in with profound weakness, not her usual color. The patient stated she just felt "quite lousy." She was admitted in observation for further workup. It appears that the patient does have a significant urinary tract infection, doubtful pyelonephritis. She was placed on ciprofloxacin last night with significant improvement. PHYSICAL EXAMINATION: VITAL SIGNS: T-max since admission 99.5, blood pressure 126/60, O2 sats 96% on 2 L, respiratory rate 18. GENERAL: She is nontoxic in appearance. She was alert. She is oriented. She is sitting up. She ate breakfast this morning. LUNGS: Clear to auscultation. CV: Regular rate and rhythm. Non-tachycardic. Good bounding radial pulses. Nontender. GI: Soft. Bowel tones are good. EXTREMITIES: She has mild bilateral ankle edema. DIAGNOSTICS: Chest x-ray, bilateral progressive interstitial changes, increased density throughout the right lung, moderate degree of pulmonary vascular congestion consistent with congestive heart failure. Her BNP is 77. Head CT, no mass effect. No evidence of intracranial process. LABORATORY DATA: White count 6.1%, neutrophils high at 83%. Sodium 138, potassium 3.9, BUN 5, creatinine 0.45, creatinine drug clearance 100. AST, ALT, troponin normal. Albumin 2.95. Urinalysis does show slightly cloudy, likely pyuria, trace leukocyte esterase, up to 100 wbc's with many bacteria. Culture taken pending. IMPRESSION AND PLAN: 1. Urinary tract infection. Ciprofloxacin 400 mg IV b.i.d. 2. Weakness, significantly improved. Other chronic medical conditions include chronic obstructive pulmonary disease, stable; significant musculoskeletal pathology such as osteoarthritis, recent humeral fracture, chronic back pain, depression with vitamin D deficiency. OVERALL PLAN: The patient is getting benefit from IV ciprofloxacin, likely could switch to orals tomorrow. We will monitor her I's and O's. Get her in a chair today, coughing and deep breathing exercises. Potential discharge back to [facility] tomorrow, we will see how she does. /[id number]/MODL
[2017-05-03] MEDS: Lactulose Soln 10 GM/15 ML 30 ML UD Cup PO SCH (12:05)
[2017-05-03] MEDS: Polyethylene Glycol 3350 Powder 17 GM Packet PO SCH (17:05)
[2017-05-04] MEDS: Ciprofloxacin in D5W 400 MG in Premix Bag 1 BAG IV SCH ×2 (05:32)
[2017-05-04 06:26] VITALS: BP 121/59
[2017-05-04] MEDS: Omeprazole 20 MG Cap.CR PO SCH (07:47)
[2017-05-04] MEDS: Phosphorus #1 250 MG Tab PO SCH ×2 (08:40→11:42)
[2017-05-04] MEDS: Oxybutynin 5 MG Tab PO SCH (08:40)
[2017-05-04] MEDS: Sodium Chloride 1 GM Tab PO SCH (08:40)
[2017-05-04] MEDS: Furosemide 20 MG Tab PO SCH (08:40)
[2017-05-04] MEDS: Arformoterol 15 MCG/2 ML Neb Soln INH SCH (08:57)
[2017-05-04 10:20] LABS: CHLORIDE,CL 94 mmol/L (98-115); SODIUM,NA 138 mmol/L (136-145)
[2017-05-04] MEDS: Lactulose Soln 10 GM/15 ML 30 ML UD Cup PO SCH (11:41)
--- NOTE | 2017-05-05 09:15 | DISCH ---
FINAL DIAGNOSES: Urinary tract infection, organism Streptococcus viridans, however, doubtful, if etiology likely contaminant, we will continue on ciprofloxacin. BRIEF HISTORY: This patient who was recently discharged 10 or 11 days ago from the hospital due to hyponatremia; she is a resident of a long-term care center. I had seen her in outlying clinic they had brought her in when she states she just felt quite lousy. She was admitted in observation for further workup. It appeared upon admission, the patient had a significant urinary tract infection, doubtful pyelonephritis. She was placed on ciprofloxacin. Urine culture was performed. Urine culture showed Streptococcus viridans, however, likely contaminant. The patient did respond to respiratory fluoroquinolones, so I did not switch her to a beta-lactam antibiotic. She improved significantly. Her temperature maximum in the hospital was 99.5. Her blood pressure was good. She remained on oxygen, chronic, O2 sats were well. She did not have a toxic appearance, however, she was quite obtunded upon admission. She responded well to IV antibiotics. She tolerated her diet. She does have a deconditioning state, which seems to be worsening over the past few months since I have seen her. Chest x-ray does show some progressive interstitial changes with increased density with some pulmonary vascular congestion, which is consistent with congestive heart failure, however, her BNP was low at 77. She never had any fluid overload status. No JVD. She did have some mild crackles, however, this is chronic for her. Head CT on admission showed no evidence of intracranial process. LABORATORY DATA: White count was normal at 6.1, hematocrit 37.2. Sodium was 138, potassium 3.9, estimated drug clearance greater than 100, GFR greater than 60. AST, ALT, and alkaline phosphatase, troponin were normal. BNP 77. Total protein 6.6. Urine slightly cloudy appearance, likely pyuria, trace leukocyte esterase, up to 100 wbc's with many bacteria. MEDICATIONS: 1. Ciprofloxacin 500 mg p.o. b.i.d. for seven more days. 2. The patient can continue on all her all other home medications. DISPOSITION: The patient has exhausted her observation stay here. She will be discharged back to assisted with ongoing antibiotics. Nursing is to report any fevers or worsening condition. She has deteriorated as far as her physical condition, physical therapy and occupational therapy will be ordered for her. She will stay on oxygen at 2 L nasal cannula. She can be followed up at the next available appointment with a provider. /[id number]/MODL
== END 2017-05-04 13:15 ==
LOC: KA.MS 15:20
PROVIDERS: ADMIT Nurse Practitioner Family; ATTEND Nurse Practitioner Family
DX: N39.0 Urinary tract infection, site not specified (principal); B95.4 Other streptococcus as the cause of diseases classified elsewhere; J44.9 Chronic obstructive pulmonary disease, unspecified; K21.9 Gastro-esophageal reflux disease without esophagitis; E78.00 Pure hypercholesterolemia, unspecified; Z79.899 Other long term (current) drug therapy; Z88.8 Allergy status to other drugs, medicaments and biological substances; Z96.612 Presence of left artificial shoulder joint; Z96.642 Presence of left artificial hip joint; Z87.891 Personal history of nicotine dependence
CPT/HCPCS: 36415; 70450; 71045; 80048; 80053; 81001; 83880; 84484; 85025; 87040; 87086; 94640; 96365; 96366; A9270-GY; G0378; J0744